=== PATIENT | female | born 1985 | race African-American/Black ===

== ENCOUNTER 2017-05-07 21:51 | Inpatient (IN) | payer SELFPAY ==
[2017-05-07] MEDS ORDERED: NORMAL SALINE 1000 ML 1,000 ML IV ONE (22:11)
[2017-05-07] MEDS ORDERED: ONDANSETRON HCL INJ/PF 4 MG/2 ML SDV IV ONE (22:11)
--- NOTE | 2017-05-07 22:18 | ER Document Report ---
ED General - General Chief Complaint: Nausea/Vomiting Stated Complaint: ABDOMINAL PAIN Time Seen by Provider: 05/07/17 22:00 Mode of Arrival: Ambulatory Information source: Patient - HPI Notes: Patient is a 31-year-old black female currently 5 weeks by last menstrual period presents to the emergency department with report of sudden onset of left lower quadrant pain at 2000 this evening associated with nausea and vomiting 4-5 without blood. The patient reports no back pain. She denies any significant diarrhea or constipation or hematemesis. The patient states abdominal pain now seems more diffuse through the abdomen, but is improved. She denies any vaginal discharge or bleeding. No skin rash. No history of previous ultrasound this . No history of kidney stones. Past Medical History - General Information source: Patient - Social History Smoking Status: Unknown if Ever Smoked Frequency of alcohol use: None Drug Abuse: None Lives with: Family Family History: Reviewed & Not Pertinent Patient has suicidal ideation: No Patient has homicidal ideation: No Renal/ Medical History: Denies: Hx Peritoneal Dialysis Review of Systems - Review of Systems Notes: REVIEW OF SYSTEMS: CONSTITUTIONAL : Denies fever, chills, or sweats. Denies recent illness. EENT: Denies eye, ear, throat, or mouth pain or symptoms. Denies nasal or sinus congestion or discharge. Denies throat, tongue, or mouth swelling or difficulty swallowing. CARDIOVASCULAR: Denies chest pain. Denies palpitations or racing or irregular heart beat. Denies ankle edema. RESPIRATORY: Denies cough, cold, or chest congestion. Denies shortness of breath, difficulty breathing, or wheezing. GASTROINTESTINAL: Denies abdominal distention. Denies diarrhea. Denies blood in vomitus, stools, or per rectum. Denies black, tarry stools. Denies constipation. GENITOURINARY: Denies difficulty urinating, painful urination, burning, frequency, blood in urine, or discharge. FEMALE GENITOURINARY: Denies vaginal discharge or odor. MUSCULOSKELETAL: Denies back or neck pain or stiffness. Denies joint pain or swelling. SKIN: Denies rash, lesions or sores. HEMATOLOGIC : Denies easy bruising or bleeding. LYMPHATIC: Denies swollen, enlarged glands. NEUROLOGICAL: Denies confusion or altered mental status. Denies passing out or loss of consciousness. Patient reports feeling somewhat lightheaded. Denies headache. Denies weakness or paralysis or loss of use of either side. Denies problems with gait or speech. Denies sensory loss, numbness, or tingling. Denies seizures. PSYCHIATRIC: Denies anxiety or stress. Denies depression, suicidal ideation, or homicidal ideation. ALL OTHER SYSTEMS REVIEWED AND NEGATIVE. Dictation was performed using transOMIC voice recognition software Physical Exam - Vital signs Vitals: Temp Pulse Resp BP Pulse Ox 98.8 F 87 16 102/58 L 99 05/07/17 22:09 05/07/17 22:09 05/07/17 22:09 05/07/17 22:09 05/07/17 22:09 - Notes Notes: PHYSICAL EXAMINATION: GENERAL: well-nourished and in moderate discomfort, pale. HEAD: Atraumatic, normocephalic. EYES: Pupils equal round and reactive to light, extraocular movements intact, conjunctiva are normal. ENT: Nares patent, oropharynx clear without exudates. Dry mucous membranes. NECK: Normal range of motion, supple without lymphadenopathy LUNGS: Breath sounds clear to auscultation bilaterally and equal. No wheezes rales or rhonchi. HEART: Regular rate and rhythm without murmurs ABDOMEN: Soft, nondistended abdomen. No guarding, no rebound. No masses appreciated. Tender diffusely through the abdomen, worse left lower quadrant. No significant CVA tenderness. Female : deferred Musculoskeletal: Normal range of motion, no pitting or edema. No cyanosis. NEUROLOGICAL: Cranial nerves grossly intact. Normal speech, normal gait. Normal sensory, motor exams PSYCH: Normal mood, normal affect. SKIN: Warm, Dry, normal turgor, no rashes or lesions noted. Course - Re-evaluation Re-evalutation: 05/07/17 22:18 Patient was given IV Benadryl and fluids were started by EMS. The patient was given IV Zofran on arrival with additional normal saline bolus. Stat ultrasound was ordered of the abdomen with hCG quantitative and other blood work. 05/07/17 23:37 Patient apparently had syncopal event after she was sent over to ultrasound. The patient immediately came back and had a low 80s systolic blood pressure. Fluid bolus was ordered and ultrasound was told to immediately come to do the ultrasound portably. Immediate phone call was made to BUSINESS INTELLIGENCE ENGINEER Dr. Celis. Type and screen was ordered. Bedside reading of ultrasound by myself and photo tech showed some debris left adnexal region with some free fluid which would fit for possible ruptured ectopic . Immediate phone call was made for Dr. Celis regarding the US findings, and discussion was undertaken with the patient that she most likely would the operating room was made available. Discussion was undertaken with the patient and she stated she last ate at 1999. The patient consented to a blood transfusion after discussion of risks alternatives and benefits. The patient also consented to surgical intervention. Additional IV access was ordered and a type and cross for 4 units of blood was made. - Vital Signs Vital signs: Temp Pulse Resp BP Pulse Ox 98.8 F 87 16 102/58 L 99 05/07/17 22:09 05/07/17 22:09 05/07/17 22:09 05/07/17 22:09 05/07/17 22:09 - Laboratory Result Diagrams: 05/07/17 21:20 05/07/17 21:20 Laboratory results interpreted by me: 05/07/17 05/07/17 21:20 21:20 WBC 17.7 H Hgb 10.9 L Hct 33.3 L Absolute Neutrophils 13.0 H Glucose 143 H Beta HCG, Quant 51474.00 H Critical Care Note - Critical Care Note Total time excluding time spent on procedures (mins): 38 Discharge - Discharge Clinical Impression: Ruptured left tubal ectopic causing hemoperitoneum Condition: Serious Disposition: ADMITTED INPATIENT Admitting Provider: [facility] - Patient Unit Admitted: Post
[2017-05-07 22:24] LABS: ABSOLUTE EOSINOPHILS # (AUTO) 0.1 10^3/uL (0.0-0.6); ABSOLUTE LYMPHOCYTES (AUTO) 3.5 10^3/uL (0.5-4.7); ABSOLUTE MONOCYTES (AUTO) 1.2 10^3/uL (0.1-1.4); BASOPHILS % (AUTO) 0.1 % (0-2); EOSINOPHILS % (AUTO) 0.6 % (0-6); HEMATOCRIT 33.3 % (36.0-47.0); HEMOGLOBIN 10.9 g/dL (12.0-15.5); LYMPHOCYTES % (AUTO) 19.5 % (13-45); MEAN CORPUSCULAR HEMOGLOBIN 27.2 pg (27.0-33.4); MEAN CORPUSCULAR HGB CONC 32.7 g/dL (32.0-36.0); MEAN CORPUSCULAR VOLUME 83 fl (80-97); MONOCYTES % (AUTO) 6.7 % (3-13); PLATELET COUNT 303 10^3/uL (150-450); SEGMENTED NEUTROPHILS % (AUTO) 73.1 % (42-78); TOTAL CELLS COUNTED % (AUTO) 100 %; WHITE BLOOD COUNT 17.7 10^3/uL (4.0-10.5)
[2017-05-07 22:29] LABS: ALANINE AMINOTRANSFERASE 18 U/L (9-52); ALBUMIN 4.4 g/dL (3.5-5.0); ALKALINE PHOSPHATASE 47 U/L (38-126); ANION GAP 15 (5-19); ASPARTATE AMINO TRANSFERASE 14 U/L (14-36); BILIRUBIN,DIRECT 0.1 mg/dL (0.0-0.4); BILIRUBIN,TOTAL 0.4 mg/dL (0.2-1.3); BLOOD UREA NITROGEN 14 mg/dL (7-20); CALCIUM 10.1 mg/dL (8.4-10.2); CARBON DIOXIDE 24 mmol/L (22-30); CHLORIDE 100 mmol/L (98-107); GLUCOSE 143 mg/dL (75-110); LIPASE 25.2 U/L (23-300); POTASSIUM 4.2 mmol/L (3.6-5.0); SODIUM 139.2 mmol/L (137-145); TOTAL PROTEIN 6.6 g/dL (6.3-8.2)
[2017-05-07] MEDS ORDERED: NORMAL SALINE 250 ML IV PRN ×2 (23:33)
[2017-05-07 23:52] LABS: INTERNATIONAL RATION (INR) 1.15; PROTHROMBIN TIME 15.5 SEC (11.4-15.4)
[2017-05-08] MEDS ORDERED: METOCLOPRAMIDE HCL INJ/PF 10 MG/2 ML SDV IV ONE (00:03)
[2017-05-08] MEDS ORDERED: PROPOFOL INJ 200 MG/20 ML VIAL IV ONE (00:04)
[2017-05-08] MEDS ORDERED: FENTANYL CITRATE INJ/PF 250 MCG/5 ML AMPULE ONE (00:04)
[2017-05-08] MEDS ORDERED: ONDANSETRON HCL INJ/PF 4 MG/2 ML SDV ONE (00:04)
[2017-05-08] MEDS ORDERED: MIDAZOLAM 2 MG/2 ML INJ ONE (00:04)
[2017-05-08] MEDS ORDERED: DEXAMETHASONE SOD PHOSPHATE INJ 4 MG/1 ML VIAL ONE (00:04)
[2017-05-08] MEDS ORDERED: FENTANYL CITRATE INJ/PF 100 MCG/2 ML AMPUL IV PRN ×3 (00:15)
[2017-05-08] MEDS ORDERED: PROMETHAZINE HCL INJ 25 MG/1 ML VIAL IV PRN ×2 (00:15)
[2017-05-08] MEDS ORDERED: MEPERIDINE HCL/PF INJ 25 MG/1 ML DISP.SYRIN IV PRN (00:15)
[2017-05-08] MEDS ORDERED: DIPHENHYDRAMINE HCL 50 MG/ML VIAL IV PRN (00:15)
--- NOTE | 2017-05-08 00:22 | RADIOLOGY REPORT (SQ) ---
EXAM DESCRIPTION: U/S 1TRIMESTER/1GEST W/DOPPLER CLINICAL HISTORY: 31 years, Female, LLQ pain, 5 week gestation, assess for ectopic COMPARISON: None. LIMITATIONS: None. FINDINGS: No intrauterine identified. Endometrial stripe thickness is 1.7 cm. Indeterminate heterogeneous material in the left adnexa measures 8.5 x 6.9 x 4.0 cm with no vascularity may indicate hemorrhage/clot and there is minimal additional low echogenicity free fluid. Ovaries are not discerned. IMPRESSION: Possible ruptured occult ectopic gestation. Critical results reporting: The results of the examination have been personally discussed with the referring health care provider, TERRENCE OCAMPO, and SUBSTITUTE CROSSING GUARD Surgeon immediately following interpretation of the examination on 05/07/2017 11:17 PM SECURITIES SETTLEMENT PROCESSOR.
[2017-05-08 02:00] LABS: HEMATOCRIT 27.3 % (36.0-47.0); MEAN CORPUSCULAR HGB CONC 33.1 g/dL (32.0-36.0); MEAN CORPUSCULAR VOLUME 85 fl (80-97); PLATELET COUNT 207 10^3/uL (150-450); RED BLOOD COUNT 3.23 10^6/uL (3.72-5.28); RED CELL DISTRIBUTION WIDTH 13.8 % (11.5-14.0); WHITE BLOOD COUNT 22.4 10^3/uL (4.0-10.5)
--- NOTE | 2017-05-08 06:13 | OPERATIVE REPORT E ---
Operative Report NAME: JESSICA LAYTON : 1985 AGE: 31Y DATE OF SURGERY: 05/08/2017 ROOM: 220 PREOPERATIVE DIAGNOSIS: Hemoperitoneum with presumed left ectopic. POSTOPERATIVE DIAGNOSIS: Hemoperitoneum with presumed left ectopic. PROCEDURE: Left salpingectomy. SURGEON: Zayda ACEVEDO M.D. ESTIMATED BLOOD LOSS: Encountered when first entering the abdomen was approximately 800 mL. ANESTHESIA: General. DESCRIPTION OF PROCEDURE: The patient was placed in a supine position, prepped and draped in sterile fashion. A mini Pfannenstiel was made through an existing Pfannenstiel eschar and incision extended through the subcutaneous tissue and fascia with sharp dissection. Fascia was sharply divided and the rectus muscles were bluntly and sharply divided. The uterus was firmly adhered to the anterior fascia on the left and it was obscured in the left adnexa. Copious amounts of clot and blood were suctioned from the abdomen. The uterus was freed and noted to have what appeared to be a rupture at the cornua section of the uterus. This area was clamped and the tube was clamped along the mesosalpinx and removed with sharp dissection and sutured with 2-0 Vicryl. Hemostasis was noted. The abdomen was irrigated with copious amounts of irrigation. Interceed was placed over the uterus in the raw area on the left and the fascia was then closed with 0 Vicryl and the skin with subcu absorbable cole. The patient tolerated it well and was taken to recovery in good condition. DICTATING PHYSICIAN: Zayda ACEVEDO M.D. [id number] PHY#: [id number] ID: [id number] JOB#: [id number] ACCT: [id number] cc:Zayda ACEVEDO M.D. >
[2017-05-08] MEDS ORDERED: OXYCODONE-ACETAMINOPHEN 5-325 MG TABLET PO PRN (06:14)
[2017-05-08] MEDS ORDERED: HYDROMORPHONE HCL INJ/PF 2 MG/ML AMPULE INJ PRN (06:15)
[2017-05-08 06:49] LABS: HEMATOCRIT 27.3 % (36.0-47.0); HEMOGLOBIN 9.3 g/dL (12.0-15.5); MEAN CORPUSCULAR HEMOGLOBIN 28.7 pg (27.0-33.4); MEAN CORPUSCULAR HGB CONC 34.1 g/dL (32.0-36.0); MEAN CORPUSCULAR VOLUME 84 fl (80-97); PLATELET COUNT 163 10^3/uL (150-450); RED BLOOD COUNT 3.24 10^6/uL (3.72-5.28); RED CELL DISTRIBUTION WIDTH 14.2 % (11.5-14.0); WHITE BLOOD COUNT 14.6 10^3/uL (4.0-10.5)
--- NOTE | 2017-05-08 07:28 | PDOC PROGRESS REPORT ---
Subjective Progress Note for:: 05/08/17 Subjective:: pt alert and is hungry Reason For Visit: HEMOPERITONEUM DUE TO RUPTURE OF LEFT TUBAL Physical Exam - Physical Exam Vital Signs: Temp Pulse Resp BP Pulse Ox 98.5 F 82 20 112/54 L 99 05/08/17 05:53 05/08/17 05:53 05/08/17 05:53 05/08/17 05:53 05/08/17 05:53 Intake & Output 05/07/17 05/08/17 05/09/17 06:59 06:59 06:59 Intake Total 3925 Output Total 1550 Balance 2375 Weight 80.6 kg General appearance: PRESENT: no acute distress Respiratory exam: PRESENT: clear to auscultation beatrice GI/Abdominal exam: PRESENT: soft Neurological exam: PRESENT: alert Result Laboratory Results: 05/08/17 06:06 05/08/17 05/08/17 05/08/17 00:05 01:38 06:06 WBC 22.4 H 14.6 H RBC 3.23 L 3.24 L Hgb 9.0 L 9.3 L Hct 27.3 L 27.3 L MCV 85 84 MCH 28.0 28.7 MCHC 33.1 34.1 RDW 13.8 14.2 H Plt Count 207 163 Seg Neutrophils % Not Reportable Lymphocytes % Not Reportable Monocytes % Not Reportable Eosinophils % Not Reportable Basophils % Not Reportable Absolute Neutrophils Not Reportable Absolute Lymphocytes Not Reportable Absolute Monocytes Not Reportable Absolute Eosinophils Not Reportable Absolute Basophils Not Reportable Blood Type B POSITIVE Antibody Screen NEGATIVE Impressions: Obstetrics Ultrasound 05/07/17 22:10 IMPRESSION: Possible ruptured occult ectopic gestation. Critical results reporting: The results of the examination have been personally discussed with the referring health care provider, TERRENCE OCAMPO, and CONSTRUCTION EQUIPMENT MECHANIC HELPER Surgeon immediately following interpretation of the examination on 05/07/2017 11:17 PM PORCELAIN TECHNICIAN. Assessment & Plan - Diagnosis (1) Ruptured left tubal ectopic causing hemoperitoneum Is this a current diagnosis for this admission?: Yes - Plan Summary Plan Summary: routine post operative care
[2017-05-08 07:49] LABS: ABSOLUTE LYMPHOCYTES# (MANUAL) 0.6 10^3/uL (0.5-4.7); ABSOLUTE MONOCYTES # (MANUAL) 0.3 10^3/uL (0.1-1.4); ABSOLUTE NEUTROPHILS# (MANUAL) 13.7 10^3/uL (1.7-8.2); BAND NEUTROPHILS % (MANUAL) 3 % (3-5); BASOPHILS % (MANUAL) 0 % (0-2); EOSINOPHILS % (MANUAL) 0 % (0-6); LYMPHOCYTES % (MANUAL) 4 % (13-45); MONOCYTES % (MANUAL) 2 % (3-13); SEGMENTED NEUTROPHILS % (MAN) 91 % (42-78); TOTAL CELLS COUNTED 100
[2017-05-08 07:50] LABS: ANISOCYTOSIS SLIGHT; HYPOCHROMASIA SLIGHT; PLATELET COMMENT ADEQUATE; POLYCHROMASIA SLIGHT; ROULEAUX SLIGHT; TOXIC GRANULATION SLIGHT
[2017-05-08] MEDS: IBUPROFEN 800 MG TABLET PO SCH ×3 (10:00→17:27)
[2017-05-08] MEDS: DEXTROSE 5%-LACTATED RINGERS 1,000 ML IV PRN ×2 (13:14→21:12)
[2017-05-08] MEDS ORDERED: SUCCINYLCHOLINE CHLORIDE INJ 200 MG/10 ML VIAL ONE ×2 (15:55→16:06)
[2017-05-09] MEDS: DEXTROSE 5%-LACTATED RINGERS 1,000 ML IV PRN (03:26)
[2017-05-09 08:16] VITALS: BP 100/70
--- NOTE | 2017-05-09 09:33 | PDOC DISCHARGE SUMMARY ---
General - Admit/Disc Date/PCP Admission Date/Primary Care Provider: 05/07/17 23:53 Discharge Date: 05/09/17 - Discharge Diagnosis (1) Cornual Is this a current diagnosis for this admission?: Yes (2) Ruptured left tubal ectopic causing hemoperitoneum Is this a current diagnosis for this admission?: Yes - Additional Information Home Medications: No Home Medications 05/08/17 History of Present Illness History of Present Illness: JESSICA LAYTON is a 31 year old female Hospital Course Hospital Course: underwent wedge resection of left cornual performed by Dr. Celis. Has had unremarkable post operative course. Is voiding and having flatus now without difficulty and tolerating a regular diet. Physical Exam - Physical Exam Vital Signs: Temp Pulse Resp BP Pulse Ox 98.2 F 75 16 100/70 99 05/09/17 08:15 05/09/17 08:15 05/09/17 08:15 05/09/17 08:15 05/09/17 03:28 Intake & Output 05/08/17 05/09/17 05/10/17 06:59 06:59 06:59 Intake Total 3925 200 Output Total 1550 600 Balance 2375 -400 Weight 80.6 kg General appearance: PRESENT: no acute distress, cooperative GI/Abdominal exam: PRESENT: soft, tenderness - appropriate for post operative period. Incision c/d/intact Result Laboratory Results: 05/08/17 06:06 Impressions: Obstetrics Ultrasound 05/07/17 22:10 IMPRESSION: Possible ruptured occult ectopic gestation. Critical results reporting: The results of the examination have been personally discussed with the referring health care provider, TERRENCE OCAMPO, and COW PUNCHER Surgeon immediately following interpretation of the examination on 05/07/2017 11:17 PM PHYSICAL OPTICS TEACHER. Plan Discharge Plan: discharge home with f/u at [facility] with Dr. Celis in one week Time Spent: Less than 30 Minutes
[2017-05-09] MEDS: IBUPROFEN 800 MG TABLET PO SCH (10:47)
== END 2017-05-09 11:33 | disposition home or self-care (01) | DRG 777 ==
LOC: ER 21:51 → EH 23:53 → 2S 05-08 03:00
PROVIDERS: ADMIT Obstetrics & Gynecology Gynecology; ATTEND Obstetrics & Gynecology Gynecology
PROC: 10T20ZZ Resection of Products of Conception, Ectopic, Open Approach (ICD-10-PCS; 2017-05-08)
PROC: 0UT60ZZ Resection of Left Fallopian Tube, Open Approach (ICD-10-PCS; principal; 2017-05-08 01:00)
DX: O00.80 Other ectopic pregnancy without intrauterine pregnancy (principal); K66.1 Hemoperitoneum
CPT/HCPCS: 36415; 36430; 76801; 80053; 82962; 83690; 840; 84702; 85025; 85027; 85610; 86850; 86900; 86901; 86920; 88305; 93976; 96361; 96374; 99291; C1765; J0330; J1100; J2250; J2405; J2704; J3010; J7030; P9016

== ENCOUNTER 2017-09-04 11:25 | Day surgery (SDC) | payer SELFPAY ==
[2017-09-04] MEDS ORDERED: DOXYCYCLINE HYCLATE 100 MG in DEXTROSE 5%-WATER 250 ML IV PRN (11:56)
[2017-09-04] MEDS ORDERED: BUPIVACAINE HCL 0.25 % INJ/PF (2.5 MG/1 ML) 30 ML VIAL ONE (12:31)
[2017-09-04 13:09] LABS: HEMATOCRIT 37.1 % (36.0-47.0); HEMOGLOBIN 12.5 g/dL (12.0-15.5); MEAN CORPUSCULAR HGB CONC 33.7 g/dL (32.0-36.0); MEAN CORPUSCULAR VOLUME 80 fl (80-97); PLATELET COUNT 301 10^3/uL (150-450); RED BLOOD COUNT 4.63 10^6/uL (3.72-5.28); RED CELL DISTRIBUTION WIDTH 15.8 % (11.5-14.0); WHITE BLOOD COUNT 10.7 10^3/uL (4.0-10.5)
[2017-09-04] MEDS ORDERED: PROPOFOL INJ 200 MG/20 ML VIAL IV ONE (13:58)
[2017-09-04] MEDS ORDERED: FENTANYL CITRATE INJ/PF 100 MCG/2 ML AMPUL ONE ×2 (13:58→16:02)
[2017-09-04] MEDS ORDERED: MIDAZOLAM 2 MG/2 ML INJ ONE (13:58)
[2017-09-04] MEDS ORDERED: ACETAMINOPHEN 1,000 MG/100 ML RTUPB IV ONE (13:58)
[2017-09-04] MEDS ORDERED: MORPHINE SULFATE 10 MG/ML INJ ONE (13:58)
[2017-09-04] MEDS ORDERED: MORPHINE SULFATE 10 MG/ML INJ IV PRN (14:44)
[2017-09-04] MEDS ORDERED: PROMETHAZINE HCL INJ 25 MG/1 ML VIAL IV PRN ×2 (14:44)
[2017-09-04] MEDS ORDERED: FENTANYL CITRATE INJ/PF 100 MCG/2 ML AMPUL IV PRN ×3 (14:44)
[2017-09-04] MEDS ORDERED: MEPERIDINE HCL/PF INJ 25 MG/1 ML DISP.SYRIN IV PRN (14:44)
[2017-09-04] MEDS ORDERED: DIPHENHYDRAMINE HCL 50 MG/ML VIAL IV PRN (14:44)
--- NOTE | 2017-09-04 16:05 | OPERATIVE REPORT E ---
Operative Report NAME: JESSICA LAYTON : 1985 AGE: 31Y DATE OF SURGERY: 09/04/2017 ROOM: PREOPERATIVE DIAGNOSIS: PRESUMED RIGHT ECTOPIC . POSTOPERATIVE DIAGNOSIS: PRESUMED RIGHT ECTOPIC WITH ADHESIONS. OPERATIONS: 1. Diagnostic laparoscopy. 2. Lysis of adhesions. 3. Open laparotomy. 4. Partial right salpingectomy. 5. Excision of ectopic . SURGEON: Zayda ACEVEDO M.D. ANESTHESIA: General. ESTIMATED BLOOD LOSS: Less than 25 mL. TISSUE REMOVED: Portion of the right tube and products of conception. PROCEDURE: Patient was placed in a dorsal lithotomy position, prepped and draped in the usual sterile fashion. Speculum placed. Cervix visualized and grasped with single-toothed tenaculum. Hulka tenaculum was placed. Single-toothed tenaculum was removed. Speculum was removed. Bladder was drained with catheter. A subumbilical linear incision was made for introduction of the trocar. With introduction of the laparoscope and visualization of the pelvis, there were multiple dense adhesions from the omentum to the anterior abdominal wall. The uterus was adhered to the anterior abdominal wall and the cul-de-sac was obliterated with adhesions. A second puncture was made lateral to the first, and a 5 was introduced. An attempt was made to take down the adhesions, but with the density and number, felt better to open with an open laparotomy. Laparoscope was removed and abdomen deflated. A Pfannenstiel incision was made through an existing Pfannenstiel eschar, and the incision extended through the subcutaneous tissue and fascia. Using blunt and sharp dissection, fascia were divided. Rectus muscle bluntly and sharply divided. Parietal peritoneum was entered with sharp dissection. Uterus noted to be firmly adhered to the anterior abdominal wall. Multiple adhesions were encountered. These were taken down with blunt and sharp dissection. What appeared to be a small mass in the proximal portion of the right tube was crossclamped and removed, and the defect closed with 0 Vicryl. The right tube, an attempt was made to identify through the fimbriae, but was unable to elevate it, secondary to the adhesions. The right ovary was identified and noted to be normal. No other masses were noted. Pelvis irrigated with normal saline. Hemostasis was noted. The fascia was then closed with 0 Vicryl and the skin with skin clips. The 2 puncture wounds, after removing the trocars, were then closed using 0 Vicryl for the fascia and 4-0 Vicryl for the skin. The tenaculum was removed and the procedure terminated. She was taken to the recovery room in good condition. DICTATING PHYSICIAN: Zayda ACEVEDO M.D. [id number] PHY#: [id number] ID: [id number] JOB#: [id number] ACCT: [id number] cc:Zayda ACEVEDO M.D. >
[2017-09-04] MEDS ORDERED: DEXTROSE 5%-LACTATED RINGERS 1,000 ML IV PRN (16:31)
[2017-09-04] MEDS ORDERED: MORPHINE SULFATE 10 MG/ML INJ IM PRN (16:32)
[2017-09-04] MEDS: IBUPROFEN 800 MG TABLET PO SCH (18:26)
[2017-09-04] MEDS: OXYCODONE-ACETAMINOPHEN 5-325 MG TABLET PO PRN (18:27)
[2017-09-04] MEDS ORDERED: ONDANSETRON HCL INJ/PF 4 MG/2 ML SDV ONE (20:23)
[2017-09-04] MEDS ORDERED: DEXAMETHASONE SOD PHOSPHATE INJ 4 MG/1 ML VIAL ONE (20:23)
[2017-09-04] MEDS ORDERED: GLYCOPYRROLATE INJ 0.4 MG/2 ML VIAL ONE (20:23)
[2017-09-04] MEDS ORDERED: NEOSTIGMINE METHYLSULFATE 10 MG/10 ML VIAL ONE (20:23)
[2017-09-04] MEDS ORDERED: SUCCINYLCHOLINE CHLORIDE INJ 200 MG/10 ML VIAL ONE (20:23)
[2017-09-04] MEDS ORDERED: KETOROLAC TROMETHAMINE 60 MG/2 ML SDV ONE (20:23)
[2017-09-05 07:34] LABS: HEMATOCRIT 31.9 % (36.0-47.0); HEMOGLOBIN 10.7 g/dL (12.0-15.5); MEAN CORPUSCULAR HEMOGLOBIN 26.8 pg (27.0-33.4); MEAN CORPUSCULAR HGB CONC 33.6 g/dL (32.0-36.0); MEAN CORPUSCULAR VOLUME 80 fl (80-97); PLATELET COUNT 238 10^3/uL (150-450); RED BLOOD COUNT 4.01 10^6/uL (3.72-5.28); RED CELL DISTRIBUTION WIDTH 15.4 % (11.5-14.0); WHITE BLOOD COUNT 15.3 10^3/uL (4.0-10.5)
[2017-09-05] MEDS: OXYCODONE-ACETAMINOPHEN 5-325 MG TABLET PO PRN (09:42)
[2017-09-05] MEDS: IBUPROFEN 800 MG TABLET PO SCH (09:42)
--- NOTE | 2017-09-05 10:35 | PDOC DISCHARGE SUMMARY ---
General - Admit/Disc Date/PCP Discharge Date: 09/05/17 - Discharge Diagnosis (1) Ruptured left tubal ectopic causing hemoperitoneum Is this a current diagnosis for this admission?: Yes - Additional Information Home Medications: 95/Iron Fum/Folic/Dha [ + Dha Combo Pack] 1 each PO DAILY 09/04 History of Present Illness History of Present Illness: JESSICA LAYTON is a 31 year old female She was admitted with an ectopic was taken to surgery last night with Dr. Celis. Please see the operative report for these details. On postop day 1 she is doing well and ready to go home. Hospital Course Hospital Course: She underwent surgery last night please see the operative report. Today she is doing well she is afebrile vital signs are stable her dressing is dry extremities are nontender and she asks to go home this morning Physical Exam - Physical Exam Vital Signs: Temp Pulse Resp BP Pulse Ox 98.0 F 62 16 99/51 L 97 09/05/17 03:21 09/05/17 03:21 09/05/17 03:21 09/05/17 03:21 09/05/17 03:21 Intake & Output 09/04/17 09/05/17 09/06/17 06:59 06:59 06:59 Intake Total 2800 Output Total 3925 Balance -1125 Weight 76.657 kg General appearance: PRESENT: no acute distress, well-developed, well-nourished Head exam: PRESENT: atraumatic - Abdominal exam shows her dressing to be dry and intact., normocephalic Result Laboratory Results: 09/05/17 06:59 09/04/17 09/04/17 09/05/17 12:00 12:00 06:59 WBC 10.7 H 15.3 H RBC 4.63 4.01 Hgb 12.5 10.7 L Hct 37.1 31.9 L MCV 80 80 MCH 27.0 26.8 L MCHC 33.7 33.6 RDW 15.8 H 15.4 H Plt Count 301 238 Blood Type B POSITIVE Antibody Screen NEGATIVE Impressions: Postop day 1. She is doing well on oral pain medication and is afebrile and wishes to go home. Plan Discharge Plan: Home today on Percocet with follow-up next week in the office. Time Spent: Less than 30 Minutes
[2017-09-05 12:28] VITALS: BP 115/71
== END 2017-09-05 12:38 | disposition home or self-care (01) ==
LOC: OROUT 11:25 → 2S 17:10 → OROUT 09-05 12:38
PROVIDERS: ATTEND Obstetrics & Gynecology Gynecology
DX: O00.101 Right tubal pregnancy without intrauterine pregnancy (principal); N80.2 Endometriosis of fallopian tube; K66.0 Peritoneal adhesions (postprocedural) (postinfection); Z53.31 Laparoscopic surgical procedure converted to open procedure
CPT/HCPCS: 59120; 49320; 86900; 86901; 36415; 86850; 84702; 85027; 88307 ×2; J2250; J1100; J3490; J1885; J3010; J2270; J0330; J2405; J7060; J2704; J0131; 840